=== PATIENT | male | born 1960 | race Caucasian/White ===

== ENCOUNTER 2020-12-13 15:31 | Emergency (ER) | payer BC, OTHER ==
[2020-12-13 15:39] VITALS: BP 135/76; PULSE 100; TEMP 98; BMI 23.6
== END 2020-12-13 17:55 | disposition home or self-care (01) ==
LOC: JERFT 15:31
DX: S50.12XA Contusion of left forearm, initial encounter (principal)
CPT/HCPCS: 73090-TC-LT-FY; 73110-TC-LT-FY; 73130-TC-LT-FY; 99284-25

== ENCOUNTER 2024-06-25 14:05 | Emergency (ER) | payer OTHER ==
[2024-06-25 14:10] VITALS: BP 123/71; PULSE 83; RESP 18; TEMP 98.1; BMI 25.8
[2024-06-25] MEDS ORDERED: LIDOCAINE 4% PATCH TP ONE (15:00)
[2024-06-25] MEDS ORDERED: KETOROLAC TROMETHAMINE 30 MG/1 ML VIAL ONE (15:00)
[2024-06-25] MEDS: KETOROLAC TROMETHAMINE 30 MG/1 ML VIAL IM ONE (15:06)
[2024-06-25] MEDS: LIDOCAINE 4% PATCH TP ONE (15:06)
[2024-06-25] MEDS ORDERED: LIDOCAINE PATCH REMOVAL MC ONE (22:00)
== END 2024-06-25 15:08 | disposition home or self-care (01) ==
LOC: JERFT 14:05
PROC: 3E0133Z Introduction of Anti-inflammatory into Subcutaneous Tissue, Percutaneous Approach (ICD-10-PCS; principal; 2024-06-25)
DX: M54.41 Lumbago with sciatica, right side (principal)
CPT/HCPCS: 99284-25

== ENCOUNTER 2024-07-01 15:45 | Emergency (ER) | payer OTHER ==
[2024-07-01 15:58] VITALS: BP 132/75; PULSE 92; RESP 17; TEMP 98.5; BMI 25.8
[2024-07-01] MEDS ORDERED: KETOROLAC TROMETHAMINE 30 MG/1 ML VIAL ONE (16:45)
[2024-07-01] MEDS: KETOROLAC TROMETHAMINE 30 MG/1 ML VIAL IM ONE (16:50)
== END 2024-07-01 16:56 | disposition home or self-care (01) ==
LOC: JERFT 15:45
PROC: 3E0133Z Introduction of Anti-inflammatory into Subcutaneous Tissue, Percutaneous Approach (ICD-10-PCS; principal; 2024-07-01)
DX: M54.41 Lumbago with sciatica, right side (principal); G89.29 Other chronic pain
CPT/HCPCS: 99284-25